=== PATIENT | female | born 1990 | race Caucasian/White ===

== ENCOUNTER 2020-04-01 10:20 | Emergency (ER) | payer MEDICAID, SELFPAY ==
[2020-04-01 10:21] VITALS: BP 162/85; PULSE 100; RESP 20; TEMP 36.3; O2SAT 98; BMI 61.7
--- NOTE | 2020-04-01 10:56 | ED.DCSUM_ITS ---
History of Present Illness Chief Complaint: Back Informant: Patient Onset: Days Context: Gradual Onset Location: Lumbar Narrative: Patient is a 29-year-old female with history of kidney stones presenting with 4 days of worsening lower back pain. Patient states that starts in her left lower back and seems to feel like a charley horse across her whole lower back. She notes that she was having mild symptoms but then she had to do an overnight at a client's house 2 nights ago and slept on a cot and in the morning her pain was much worse. Jj has tried OTC NSAIDs and heat with no relief of her symptoms. Is worse with movement and even deep inspiration. Patient states she had a large kidney stone back in August of this year but it did not feel like this. She denies any urinary symptoms. She no she is currently on her menstrual cycle. She is also concerned because she had a call out of work today and does have to use Main lifts with work. No associated saddle anesthesia, incontinence or leg weakness. The pain does not radiate to her legs. She intermittently has nausea when the pain is severe none currently. Past Medical History - Allergies and Home Meds Allergies/Adverse Reactions: Allergies amoxicillin Allergy (Verified 04/01/20 10:23) PT UNSURE OF REACTION Penicillins Allergy (Verified 04/01/20 10:23) PT UNSURE OF REACTION Past Medical History: - - GERD, diabetes mellitus Surgical History: - - Lithotripsy Lives: With Family Review of Systems General: Denies: Chills, Fever, Sweats Eyes: Denies: Visual changes - bilaterally, Diplopia ENT: Denies: Rhinorrhea, Sore throat Cardiovascular: Denies: Chest pain, Palpitations Respiratory: Denies: Dyspnea, Cough, Dyspnea on exertion Gastrointestinal: Denies: Abdominal pain, Nausea, Vomiting, Diarrhea, Melena, Hematochezia Genitourinary: Denies: Dysuria, Hematuria, Frequency Musculoskeletal: Reports: Back pain. Denies: Extremity Pain Skin: Denies: Rash, Wounds Neurological: Denies: Headache, Weakness, Numbness Physical Exam Vital Signs/Narrative: Vital Signs Temp Pulse Resp BP Pulse Ox 04/01/20 10:21 97.3 F L 100 20 H 162/85 H 98 Inital Vital Signs reviewed: Yes General: Well nourished, Well developed Head: Normocephalic, Atraumatic Eyes: Perrl, EOMI ENT: Moist mucous membranes, No rhinorrhea Neck: Supple, Nontender Cardiovascular: Regular rate, Regular rhythm, No murmurs Respiratory: No distress, CTA bilaterally, Chest nontender Abdomen: Soft, Nontender, Nondistended, Normal bowel sounds, No masses. Negative for: Guarding, Rebound tenderness Back: Normal Inspection, Paraspinal Tenderness - Left lumbar. Negative for: Spinal tenderness, CVA tenderness Extremeties: Nontender, No edema Skin: Normal color, No rash Neuro: Alert, Oriented, Normal Strength, Normal Sensation, Normal DTR, Normal Gait Psychological: Normal affect Diagnostic/Tx/Re-eval Laboratory Data 04/01/20 11:05 Urine Color Tanya Urine Clarity Sl. Cloudy Urine pH 5.0 Ur Specific [place] 1.020 Urine Protein 30 H Urine Glucose (UA) 250 H Urine Ketones 15 H Urine Occult Blood 250 H Urine Nitrite Negative Urine Bilirubin Negative Urine Urobilinogen Normal Ur Leukocyte Esterase 25 H Urine RBC 25-50 SEEN Urine WBC 0 SEEN Ur Squamous Epith Cells 0-5 SEEN Urine Bacteria RARE Urine Mucus 0 SEEN Urine Test Negative - Medical Decision Making Patient is evaluated for worsening pain in her lower back. She appears nontoxic in no acute distress. Her pain is highly reproducible with palpation and seems to be associated with muscle spasm of the lumbar paraspinal muscles. Urine is obtained which is negative. Urine does have blood in it but patient likely has menstrual contamination. Patient is given Flexeril for pain control as well as NSAIDs and Lidoderm patch. She will be treated symptomatically. At this time I do not suspect a kidney stone, pyelonephritis or other acute intra-abdominal process. Patient is counseled on signs and symptoms requiring return to the emergency room. Patient verbalizes agreement and understand this plan. Patient discharged home in stable and improved condition. ED Disposition - Plan for ED Patient: Disposition: Home or Assisted Living Diagnosis: Muscle spasm of back Instructions: ED Spasm Back No Trauma Prescriptions: cycloBENZAPRine HCl [Flexeril] 10 mg PO TID PRN #20 tab PRN Reason: Muscle Spasm Transmission Status: Received by [id number] Additional Instructions: Follow-up with your doctor next week if no improvement. Use heat if it is not making it worse. Continue to try to move around. If you find that the Lidoderm patch was helpful you can get them [id number] as a 4% Lidoderm patch. Alternate Tylenol and ibuprofen as well for pain.
[2020-04-01] MEDS: Lidocaine 5% Patch 1 PATCH TOPICAL (11:09)
[2020-04-01] MEDS: Ibuprofen 600 MG Tablet PO (11:09)
[2020-04-01] MEDS: cycloBENZAPRine HCl 10 MG Tablet PO (11:09)
[2020-04-01 11:28] LABS: Color, Urine Amber (Yellow); Glucose, Dipstick 250 mg/dl (Normal); Internal QC Validated? YES +Cl - CLEAR BKGD; Ketone-Dipstick 15 mg/dl (Negative); Leukocyte Esterase-Dipstick 25 /ul (Negative); Mucous, Urine 0 SEEN /hpf (<or=2+); Nitrite-Dipstick Negative (Negative); Occult Blood-Urine 250 /ul (Negative); Pregnancy, Urine Negative Negative; Protein-Dipstick 30 mg/dl (Negative); Urine Bilirubin Dipstick Negative (Negative); Urine Clarity Sl. Cloudy (Clear); Urine Urobilinogen Normal (Normal); White Blood Cells 0 SEEN /hpf (0-5)
[2020-04-01 11:37] LABS: Bacteria RARE /hpf (None Seen); Red Blood Cells-Urine 25-50 SEEN /hpf (0-5); Squamous Epithelial Cells - UA 0-5 SEEN /hpf (5-10)
== END 2020-04-01 12:27 | disposition home or self-care (01) ==
PROVIDERS: Emergency Provider Emergency Medicine; PCP Family Medicine
DX: M62.830 Muscle spasm of back (principal); E11.9 Type 2 diabetes mellitus without complications; K21.9 Gastro-esophageal reflux disease without esophagitis; Z79.84 Long term (current) use of oral hypoglycemic drugs; Z87.442 Personal history of urinary calculi
CPT/HCPCS: 81001; 81025; 99283

== ENCOUNTER 2020-08-05 11:25 | Emergency (ER) | payer MEDICAID, SELFPAY ==
[2020-08-05 11:26] VITALS: BP 128/79; PULSE 96; RESP 16; TEMP 35.8; O2SAT 94; BMI 60.2
--- NOTE | 2020-08-05 11:42 | ED.VIS.GEN ---
History of Present Illness Chief Complaint: Edema Narrative: Patient is a 29-year-old female who presents with left-sided facial redness and swelling. She initially noticed this last Thursday. She was seen in an outside emergency department on Thursday and started on Keflex. She was prescribed 5 days worth. Today her swelling seemed worse. She is diabetic. No fevers nausea vomiting. No history of prior similar symptoms. No dental pain. Past Medical History - Allergies and Home Meds Allergies/Adverse Reactions: Allergies amoxicillin Allergy (Verified 08/05/20 11:26) PT UNSURE OF REACTION Penicillins Allergy (Verified 08/05/20 11:26) PT UNSURE OF REACTION Primary Care Physician: Elvi Bryant MD [Primary Care Provider] - Past Medical History: - - Diabetes Surgical History: - - Lithotripsy Smoking Status: Never smoker Review of Systems All systems negative except as indicated General: Denies: Fever Eyes: Denies: Visual changes - bilaterally ENT: Denies: Bilateral ear pain Cardiovascular: Denies: Chest pain Respiratory: Denies: Dyspnea Gastrointestinal: Denies: Vomiting, Diarrhea Skin: Reports: Rash, - - Left facial redness and swelling Neurological: Denies: Headache Hematologic: Denies: Easy bruising Allergy: Denies: Uticaria Physical Exam Vital Signs/Narrative: Vital Signs Temp Pulse Resp BP Pulse Ox 08/05/20 11:26 96.4 F L 96 16 128/79 H 94 Inital Vital Signs reviewed: Yes General: Well nourished Head: Normocephalic Eyes: EOMI ENT: Moist mucous membranes Cardiovascular: Regular rate Respiratory: No distress Skin: Normal color, - - Patient has induration over the left cheek as well as left-sided facial erythema and mild soft tissue swelling Neurological: Alert Psychological: Normal affect Diagnostic/Tx/Re-eval - Medical Decision Making Exam is consistent with a facial cellulitis. A [id number] soft tissue ultrasound was performed which shows no focal fluid collection. We will extend the patient's Keflex and also add on Bactrim for MRSA coverage. Patient advised to follow-up as an outpatient return for new or worsening symptoms and she was discharged. ED Disposition - Plan for ED Patient: Disposition: Home or Assisted Living Diagnosis: Facial cellulitis Instructions: ED Cellulitis, Facial Prescriptions: Smz/Tmp Ds [Bactrim Ds] 1 tab PO BID #20 tab Prescription Printed Cephalexin [Keflex] 500 mg PO Q6 #20 cap Prescription Printed Referrals: Elvi Bryant MD [Primary Care Provider] -
[2020-08-05 12:14] VITALS: RESP 18
== END 2020-08-05 12:15 | disposition home or self-care (01) ==
LOC: ED 11:52
PROVIDERS: Emergency Provider Emergency Medicine; PCP Family Medicine
DX: L03.211 Cellulitis of face (principal); E11.9 Type 2 diabetes mellitus without complications; Z79.2 Long term (current) use of antibiotics; Z79.84 Long term (current) use of oral hypoglycemic drugs
CPT/HCPCS: 99282